=== PATIENT | male | born 1940 | race Caucasian/White ===

== ENCOUNTER 2023-11-06 09:55 | Outpatient (AMB) | payer MEDICARE, SELFPAY ==
[2023-11-06 10:58] VITALS: BP 130/78; PULSE 66; TEMP 36.2; O2SAT 96; BMI 26.1
--- NOTE | 2023-11-06 10:58 | MHC.OFFWIV ---
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 Reports having yellow/green sputum. Denies fever or chills. Denies any other symptoms. has similar symptoms at this time. He has tried utiz-ibv-buczzyx cough medication without relief. He also has a small skin tear on his left elbow, which he sustained about 4-5 days ago when he scraped the edge of a stair railing at home. He has been covering with a Band-Aid, however would like me to take a look at it. [facility] Social History Patient Tobacco Use Status: Never used Tobacco Review of Systems Const All systems reviewed & are unremarkable except as noted in HPI and below Physical Exam Vital Signs: Last Vital Signs Temp 97.2 F 11/06/23 10:58 Pulse 66 11/06/23 10:58 BP 130/78 11/06/23 10:58 Pulse Ox 96 11/06/23 10:58 Oxygen Delivery Method Room Air 11/06/23 10:58 BMI result Body Mass Index 26.1 Const General: cooperative HEENT Head: Yes normal to inspection Ears: hearing grossly normal bilaterally General nose exam: Normal external nose present Throat: Yes posterior oropharynx normal Neck Neck: Yes no lymphadenopathy Resp Effort & Inspection: normal respiratory effort and Actively coughing Quality: productive Auscultation: rhonchi upper bilaterally Cardio Rate: regular rate Rhythm: regular rhythm Skin General skin exam: no rashes or lesions noted Extrem Other: small skin tear left elbow, approx 2cm diameter. Bandaid removed. No bleeding. Small amount serous drainage. Surrounding skin intact without warmth or erythema. Mild bruising. n General: Yes capillary refill normal and Yes no clubbing, cyanosis or edema Psych Appearance: grossly normal Mental Status: mental status grossly normal Speech and movement: Normal speech and movement present Results AMB Rapid Strep AMB Rapid Strep Negative Last Edit by Rivka Salazar MA on 11/06/23 11:29 Assessment & Plan Assessment & Plan (1) Upper respiratory infection: Code(s): J06.9 - Acute upper respiratory infection, unspecified Qualifiers: URI type: unspecified viral URI Qualified Code(s): J06.9 - Acute upper respiratory infection, unspecified Plan: Will start on azithromycin and benzonatate. We reviewed indications, use, possible side effects of these medications. COVID/flu/RSV swab was obtained, and patient aware he will be notified of results once these are available. If he does not improve with treatment, or if symptoms worsen/new symptoms develop, he should return to the clinic for further evaluation. He verbalizes understanding and agrees to plan. (2) Skin tear of left elbow without complication: Code(s): S51.012A - Laceration without foreign body of left elbow, initial encounter Qualifiers: Encounter type: initial encounter Qualified Code(s): S51.012A - Laceration without foreign body of left elbow, initial encounter Plan: I cleansed area with NS and applied xeroform dressing with DSD on top, secured with paper tape. Advised patient to keep area clean and dry and monitor for any signs of infection. He agrees to plan. Orders: Orders SARS-CoV2/FLU/RSV Today R09.89 - Other specified symptoms and signs involving the circulatory and respiratory systems Medications: New benzonatate 100 mg PO BID 7 days 14 caps 0RF cough R05.9 - Cough, unspecified azithromycin For 250 mg dose pack: take 500 mg today (day 1), then 250 mg for 4 days (days 2-5) PO 6 tabs 0RF J06.9 - Acute upper respiratory infection, unspecified Coding Level of Care Code New Pt Level 4 (61543) Diagnoses Viral upper respiratory tract infection J06.9 URI type: unspecified viral URI Skin tear of left elbow without complication, initial encounter S51.012A Encounter type: initial encounter
== END 2023-11-06 11:58 | disposition home or self-care (01) ==
PROVIDERS: PCP Nurse Practitioner Family; Visit Provider Nurse Practitioner Family
DX: J06.9 Acute upper respiratory infection, unspecified (principal); S51.012A Laceration without foreign body of left elbow, initial encounter
CPT/HCPCS: 99204

== ENCOUNTER 2023-11-06 11:58 | Outpatient (REF) | payer MEDICARE, SELFPAY ==
[2023-11-06 17:09] LABS: Influenza A PCR POSITIVE (Negative); Influenza B PCR NEGATIVE (Negative); Resp Syncy Virus RNA Qual PCR NEGATIVE (Negative); SARS COV2 PCR INHOUSE NEGATIVE (Negative)
== END 2023-11-06 11:59 | disposition home or self-care (01) ==
LOC: HO.LAB 11:58
PROVIDERS: Visit Provider Nurse Practitioner Family
DX: R09.89 Other specified symptoms and signs involving the circulatory and respiratory systems (principal); Z11.52 Encounter for screening for COVID-19; Z20.828 Contact with and (suspected) exposure to other viral communicable diseases
CPT/HCPCS: 0241U

== ENCOUNTER 2025-07-30 09:20 | Outpatient (AMB) | payer MEDICARE, SELFPAY ==
--- NOTE | 2025-07-30 11:29 | MHC.OFFWIV ---
Intake Vital Signs 07/30/25 11:30 Height 5 ft 8 in Weight 160 lb BMI 24.3 BP 94/52 L Blood Pressure Location Lt brachial Position Sitting Respiration 17 Pulse 71 Pulse Source Pulse Oximeter Temp 98.4 F Temp Source Oral Pulse Oximetry (%) 96 Oxygen Delivery Method Room Air Intake Visit Reasons: EP Sore throat, body weakness, nausea Intake Note: Pt is here today c/o sore throat, body weakness and nausea Patient Tobacco Use Status: Never used Tobacco Allergies No Known Allergies Allergy (Verified 11/06/23 11:12) HPI EP Sore throat, body weakness, nausea HPI Details about 4 days of postnasal drip, cough when supine, and feeling tired. He denies fever or chills, Nausea ( although it was written on intake) myalgias, significant sore throat, dizziness, headache, chest pain or chest congestion, PFSH Social History Patient Tobacco Use Status: Never used Tobacco Review of Systems Const All systems reviewed & are unremarkable except as noted in HPI and below Physical Exam Vital Signs: Last Vital Signs Temp 98.4 F 07/30/25 11:30 Pulse 71 07/30/25 11:30 Resp 17 07/30/25 11:30 BP 94/52 L 07/30/25 11:30 Pulse Ox 96 07/30/25 11:30 Oxygen Delivery Method Room Air 07/30/25 11:30 BMI result Body Mass Index 24.3 Results AMB Rapid Strep AMB Rapid Strep Negative Last Edit by Yamilet Howe CMA on 07/30/25 11:40 Results Reviewed Results Reviewed: Laboratory Last Values Strep Scn Rapid Clinic Negative 07/30/25 11:39 no acute cardiopulmonary findings on chest x-ray today, and rapid strep test was negative. Patient is aware of results Assessment & Plan Assessment & Plan Plan I did write patient for a course of azithromycin, as well as benzonatate for the postnasal drip associated cough, especially when supine. I think this should help him sleep, and he will be able to rest more in regards to his waking him, as I advised. He was hypotensive today, and might be developing pneumonia despite x-ray results, however we did discuss that he should get an adequate oral intake of fluids, as well as adequate rest. If he feels worse tomorrow, he knows to go to the emergency department. At this time, I do believe he is stable for outpatient treatment, as he denies weakness or dizziness, headache, nausea vomiting or diarrhea, chest pain or shortness of breath, and has no cough at baseline while sitting up. Orders: Orders AMB Rapid Strep Screen Today Z13.9 - Encounter for screening, unspecified XR chest 2V Today R05.9 - Cough, unspecified Medications: New benzonatate 200 mg PO BID-TID PRN 30 caps 0RF cough azithromycin For 250 mg dose pack: take 500 mg today (day 1), then 250 mg for 4 days (days 2-5) PO 6 tabs 0RF Coding Level of Care Code Est Pt Level 4 (03510)
[2025-07-30 11:30] VITALS: BP 94/52; PULSE 71; RESP 17; TEMP 36.9; O2SAT 96; BMI 24.3
== END 2025-07-30 12:13 | disposition home or self-care (01) ==
PROVIDERS: PCP Nurse Practitioner Family; Visit Provider Physician Assistant Medical
DX: Z13.9 Encounter for screening, unspecified (principal)

== ENCOUNTER → 2025-07-30 11:51 | Outpatient (BNV) | payer MEDICARE, SELFPAY | PROVIDERS: PCP Nurse Practitioner Family; Visit Provider Specialist | DX: R05.9 Cough, unspecified (principal) | CPT/HCPCS: 71046 ==

== ENCOUNTER 2025-07-30 13:55 | Outpatient (REF) | payer MEDICARE, SELFPAY ==
[2025-07-30 14:49] LABS: Resp Syncy Virus RNA Qual PCR NEGATIVE (Negative); SARS COV2 PCR INHOUSE POSITIVE (Negative)
== END 2025-07-30 13:56 | disposition home or self-care (01) ==
LOC: HO.LNP 13:55
PROVIDERS: Visit Provider Physician Assistant Medical
DX: U07.1 COVID-19 (principal)
CPT/HCPCS: 87637